=== PATIENT | female | born 1990 | race Caucasian/White ===

== ENCOUNTER 2023-10-21 08:01 | Emergency (ER) | payer OTHER ==
[~2023-10-21] VITALS: Ht 165.1 cm; Wt 80.0 kg
[2023-10-21 08:04] VITALS: O2SAT 99
[2023-10-21 08:48] VITALS: BP 132/78; PULSE 78; RESP 16; TEMP 98.5
== END 2023-10-21 08:50 | disposition home or self-care (01) ==
LOC: ER 08:01
DX: G40.89 Other seizures (principal); J45.909 Unspecified asthma, uncomplicated; F19.90 Other psychoactive substance use, unspecified, uncomplicated
CPT/HCPCS: 99283